=== PATIENT | male | born 1965 | race Caucasian/White ===

== ENCOUNTER 2019-06-15 10:19 | Emergency (ER) | payer BC ==
[2019-06-15] MEDS ORDERED: THIAMINE 200 MG/2 ML INJ ONE (10:47)
[2019-06-15] MEDS ORDERED: TOBRAMYCIN SULF 0.3% OPTH OINT ONE (10:59)
[2019-06-15] MEDS ORDERED: NA CHLORIDE 0.9% 1,000 ML with FOLIC ACID 1 MG, THIAMINE HCL 100 MG, MULTIVITAMINS INJ ... IV SCH ×4 (11:00)
[2019-06-15 11:06] LABS: Absolute Lymphocytes (CBC) 1.6 K/uL (0.7-4.9); Basophils % 0.8 % (0-1.3); Hematocrit 45.4 % (39.6-49.0); Lymphocytes % 16.6 % (15.3-44.8)
[2019-06-15 11:11] LABS: Protime INR 1.16
--- NOTE | 2019-06-15 11:19 | RAD REPORT ---
EXAM DESCRIPTION: CT - Head Brain Wo Cont - 06/15/2019 11:07 am CLINICAL HISTORY: Dizziness;Mental status change Headache, drowsiness COMPARISON: No comparisons TECHNIQUE: All CT scans are performed using dose optimization technique as appropriate and may inclu de automated exposure control or mA/KV adjustment according to patient size. FINDINGS: No intracranial hemorrhage, hydrocephalus or extra-axial fluid collection.No areas of brai n edema or evidence of midline shift. The paranasal sinuses and mastoids are clear. The calvarium is intact. IMPRESSION: No acute intracranial abnormality.
[2019-06-15 11:28] LABS: ALT/SGPT 25 U/L (12-78); AST/SGOT 16 U/L (15-37); Albumin 4.2 g/dL (3.4-5.0); Alkaline Phosphatase 69 U/L (45-117); BUN Blood Urea Nitrogen 9 mg/dL (7-18); Bicarbonate 23 mmol/L (21-32); Bilirubin Direct 0.2 mg/dL (0-0.2); Bilirubin Total 0.6 mg/dL (0.2-1.0); Glucose Level 93 mg/dL (74-106); Magnesium 2.4 mg/dL (1.8-2.4); NT PRO-BNP 65 pg/mL (<125); Potassium 3.3 mmol/L (3.5-5.1); Protein, Total 7.6 g/dL (6.4-8.2); Sodium Level 136 mmol/L (136-145); Troponin (Emerg Dept Use Only) < 0.02 ng/mL (0.0-0.045)
[2019-06-15] MEDS ORDERED: POTASSIUM 25 MEQ EFFERV TAB ONE (11:39)
--- NOTE | 2019-06-15 12:08 | RAD REPORT ---
EXAM DESCRIPTION: RAD - Chest Single View - 06/15/2019 11:57 am CLINICAL HISTORY: Cough COMPARISON: None. TECHNIQUE: AP portable chest image was obtained 1140 hours . FINDINGS: Lung volumes are low accentuating interstitial pattern. No consolidation or mass. No signi ficant failure or volume overload. Heart and vasculature are normal. No measurable pleural effusion a nd no pneumothorax. No acute bony abnormality seen. No acute aortic findings suspected. IMPRESSION: Shallow inspiration film showing no acute cardiopulmonary finding.
--- NOTE | 2019-06-15 12:23 | ER ---
Nurse's Notes [facility] Name: Adán Green Age: 53 yrs Sex: Male : 1965 Arrival Date: 06/15/2019 Time: 10:20 Bed 3 Private MD: Diagnosis: Conjunctivitis;Adjustment disorder with depressed mood Presentation: 06/15 10:21 Presenting complaint: EMS states: pts dad said he had a tooth pulled in April, was in [address] [facility] for the passed month, and has been acting paranoid and off since the tooth pulling per pts father, his eyes are red and has yellow drainage coming from, BGL 83, 180/110 hr 100. Transition of care: patient was not received from another setting of care. Onset of symptoms was June 15, 2019. Risk Assessment: Do you want to hurt yourself or someone else? Patient reports no desire to harm self or others. Initial Sepsis Screen: Does the patient meet any 2 criteria? HR > 90 bpm. Does the patient have a suspected source of infection? Yes: Other: dental, and eye infection. Care prior to arrival: None. 10:21 Method Of Arrival: EMS: [facility] tw2 10:21 Acuity: ZOYA 2 tw2 Triage Assessment: 10:20 General: Appears in no apparent distress. Behavior is anxious. Pain: Complains of pain tw2 in right eye and left eye. EENT: Sclera/Cornea are reddened in outer aspect of conjuctiva of right eye, iris of right eye, inner aspect of conjuctiva of right eye, outer aspect of conjuctiva of left eye, iris of left eye and inner aspect of conjunctiva of left eye with yellow tianna drainage noted. Neuro: Level of Consciousness is awake, alert, obeys commands, Oriented to person, place, situation. Cardiovascular: Heart tones S1 S2 Patient's skin is warm and dry. Respiratory: Airway is patent Respiratory effort is even, unlabored, Respiratory pattern is regular, agonal Breath sounds are clear bilaterally. GI: No signs and/or symptoms were reported involving the gastrointestinal system. GI: Abdomen is round non-distended, Bowel sounds present X 4 quads. : No signs and/or symptoms were reported regarding the genitourinary system. Derm: No signs and/or symptoms reported regarding the dermatologic system. Musculoskeletal: Range of motion: intact in all extremities. Historical: - Allergies: 10:28 No Known Allergies; tw2 - Home Meds: 10:28 Unable to obtain [Active]; tw2 - PMHx: 10:28 Hypertension; tw2 - PSHx: 10:28 Unable to obtain; tw2 - Immunization history:: Adult Immunizations unknown. - Social history:: Smoking status: Patient uses tobacco products, smokes more than three packs cigarettes per day. per EMS. - Ebola Screening: : Patient denies travel to an Ebola-affected area in the 21 days before illness onset. - Family history:: not pertinent. Screenin:31 Abuse screen: Denies threats or abuse. Nutritional screening: No deficits noted. tw2 Tuberculosis screening: No symptoms or risk factors identified. Fall Risk Secondary diagnosis (15 points) impaired mobility. Assessment: 10:30 General: Behavior is pt states "dont hurt me", we are able to explain the use of blood tw2 pressure cuff and pulse ox at this time and pt is agreeable to monitoring. 11:12 Reassessment: Patient appears in no apparent distress at this time. No changes from tw2 previously documented assessment. Patient and/or family updated on plan of care and expected duration. Pain level reassessed. 11:45 Reassessment: pts FATHER - ph#[phone]. tw2 12:08 Reassessment: Patient appears in no apparent distress at this time. No changes from tw2 previously documented assessment. Patient and/or family updated on plan of care and expected duration. Pain level reassessed. 12:09 Reassessment: pts Sister Lalita ph#[phone]. tw2 14:42 Reassessment: Nurse to nurse given to Marisa at [facility]. iw 15:42 Reassessment: Patient appears in no apparent distress at this time. No changes from tw2 previously documented assessment. Patient and/or family updated on plan of care and expected duration. Pain level reassessed. 16:07 Reassessment: Patient appears in no apparent distress at this time. No changes from tw2 previously documented assessment. Patient and/or family updated on plan of care and expected duration. Pain level reassessed. 17:05 Reassessment: Patient appears in no apparent distress at this time. No changes from tw2 previously documented assessment. Patient and/or family updated on plan of care and expected duration. Pain level reassessed. 17:49 Reassessment: Patient appears in no apparent distress at this time. No changes from tw2 previously documented assessment. Patient and/or family updated on plan of care and expected duration. Pain level reassessed. Vital Signs: 10:27 BP 140 / 112; Pulse 97; Resp 18; Temp 98.7(TE); Pulse Ox 95% on R/A; Weight 90.72 kg tw2 (R); Height 5 ft. 7 in. (170.18 cm); Pain 0/10; 10:36 BP 145 / 90; Pulse 88; Resp 17; Pulse Ox 95% on R/A; tw2 11:12 BP 130 / 84; Pulse 79; Resp 17; Pulse Ox 97% on R/A; tw2 12:08 BP 113 / 73; Pulse 74; Resp 17; Pulse Ox 100% on R/A; tw2 13:10 BP 148 / 96; Pulse 77; Resp 17; Pulse Ox 100% on R/A; tw2 14:10 BP 106 / 83; Pulse 76; Resp 17; Pulse Ox 97% on R/A; tw2 15:10 BP 103 / 69; Pulse 72; Resp 17; Pulse Ox 95% on R/A; tw2 16:06 BP 114 / 82; Pulse 72; Resp 17; Pulse Ox 99% on R/A; tw2 17:05 BP 114 / 82; Pulse 69; Resp 17; Pulse Ox 98% on R/A; tw2 17:49 BP 129 / 88; Pulse 64; Resp 17; Pulse Ox 100% on R/A; tw2 18:49 BP 137 / 87; Pulse 70; Resp 17; Pulse Ox 99% on R/A; tw2 10:27 Body Mass Index 31.32 (90.72 kg, 170.18 cm) tw2 ED Course: 10:20 Patient arrived in ED. tw2 10:20 Bed in low position. Call light in reach. Side rails up X 1. audiology technician on. Pulse tw2 ox on. NIBP on. 10:23 Triage completed. tw2 10:23 Edgardo Esquivel MD is Attending Physician. cristian 10:28 Arm band placed on. tw2 10:36 Denisse Silva RN is Primary Nurse. tw2 10:57 Initial lab(s) drawn, by me, sent to lab. Inserted saline lock: 20 gauge in right em1 forearm, using aseptic technique. Blood collected. 11:10 CT Head Brain wo Cont In Process Unspecified. EDMS 11:17 EKG done, by circuit board repair technician. reviewed by Edgardo Esquivel MD. at1 11:57 XRAY Chest (1 view) In Process Unspecified. EDMS 17:05 attempted transfer to [facility], pt denied due to not having the appropriate bd bed. 17:07 faxed chart to [facility]. bd 17:12 faxed chart to [facility]. bd 18:34 Anthony Lang MD is Referral Physician. cristian 18:36 pt denied by [facility] due to no appropriate bed. bd 18:50 No provider procedures requiring assistance completed. IV discontinued, intact, tw2 bleeding controlled, No redness/swelling at site. Pressure dressing applied. Administered Medications: 10:57 Drug: Thiamine 100 mg Route: IV; Rate: bolus; Site: right forearm; tw2 11:03 Follow up: Response: No adverse reaction; IV Status: Completed infusion tw2 11:11 Drug: Banana Bag - (NS 0.9% 1000 ml, foLIC Acid 1 mg, Thiamine 100 mg, Multivitamin 1 tw2 amp) Route: IV; Rate: 125 ml/hr; Site: right forearm; 18:49 Follow up: IV Status: Order to discontinue infusion tw2 11:11 Drug: Tobramycin Ointment (0.3 %) 1 application Route: Ophthalmic; Site: both eyes; tw2 11:42 Drug: Potassium Effervescent Tablet 25 mEq Route: PO; tw2 18:49 Follow up: Response: No adverse reaction tw2 Point of Care Testing: Blood Glucose: 10:47 Blood Glucose: 289 mg/dL; tw2 Ranges: Outcome: 12:22 ER care complete, transfer ordered by . cristian 18:36 Discharge ordered by . cristian 18:50 Discharged to home ambulatory. tw2 18:50 Condition: stable 18:50 Discharge instructions given to patient, Instructed on discharge instructions, follow up and referral plans. medication usage, Demonstrated understanding of instructions, follow-up care, medications, Prescriptions given X 1. 18:50 Patient left the ED. tw2 Signatures: Dispatcher [employer] EDMS Jenifer Downing Corey, MD MD cha Williams, Irene, RN RN iw Lamine Fabian em1 Yisel Merchant, case loader operator EKG Tat1 Denisse Silva RN RN tw2
--- NOTE | 2019-06-15 12:24 | EDPHYS ---
Physician Documentation [facility] Name: Adán Green Age: 53 yrs Sex: Male : 1965 Arrival Date: 06/15/2019 Time: 10:20 Bed 3 Private MD: ED Physician Edgardo Esquivel HPI: 06/15 10:56 This 53 yrs old Male presents to ER via EMS with complaints of Altered Mental cristian Status, Drainage From Eye. 10:56 The patient presents with confusion, trouble concentrating. Onset: The symptoms/episode cristian began/occurred 4 week(s) ago. Possible causes: unknown. Associated signs and symptoms: Pertinent positives: confusion, dizziness. Current symptoms: In the emergency department the patient's symptoms are unchanged from the initial presentation. Patient's baseline: Neuro: alert and fully oriented, Motor: no deficits. The patient has not experienced similar symptoms in the past. Historical: - Allergies: 10:28 No Known Allergies; tw2 - Home Meds: 10:28 Unable to obtain [Active]; tw2 - PMHx: 10:28 Hypertension; tw2 - PSHx: 10:28 Unable to obtain; tw2 - Immunization history:: Adult Immunizations unknown. - Social history:: Smoking status: Patient uses tobacco products, smokes more than three packs cigarettes per day. per EMS. - Ebola Screening: : Patient denies travel to an Ebola-affected area in the 21 days before illness onset. - Family history:: not pertinent. ROS: 10:56 Constitutional: Negative for fever, chills, and weight loss, ENT: Negative for injury, cristian pain, and discharge, Neck: Negative for injury, pain, and swelling, Cardiovascular: Negative for chest pain, palpitations, and edema, Respiratory: Negative for shortness of breath, cough, wheezing, and pleuritic chest pain, Abdomen/GI: Negative for abdominal pain, nausea, vomiting, diarrhea, and constipation, Back: Negative for injury and pain, : Negative for injury, bleeding, discharge, and swelling, MS/Extremity: Negative for injury and deformity, Skin: Negative for injury, rash, and discoloration, Psych: Negative for depression, anxiety, suicide ideation, homicidal ideation, and hallucinations, Allergy/Immunology: Negative for hives, rash, and allergies, Endocrine: Negative for neck swelling, polydipsia, polyuria, polyphagia, and marked weight changes, Hematologic/Lymphatic: Negative for swollen nodes, abnormal bleeding, and unusual bruising. 10:56 Eyes: Positive for itching, matting, pain, redness. 10:56 ENT: Positive for Exam: 10:56 Constitutional: This is a well developed, well nourished patient who is awake, alert, cristian and in no acute distress. Head/Face: Normocephalic, atraumatic. ENT: Nares patent. No nasal discharge, no septal abnormalities noted. Tympanic membranes are normal and external auditory canals are clear. Oropharynx with no redness, swelling, or masses, exudates, or evidence of obstruction, uvula midline. Mucous membranes moist. Neck: Trachea midline, no thyromegaly or masses palpated, and no cervical lymphadenopathy. Supple, full range of motion without nuchal rigidity, or vertebral point tenderness. No Meningismus. Chest/axilla: Normal chest wall appearance and motion. Nontender with no deformity. No lesions are appreciated. Cardiovascular: Regular rate and rhythm with a normal S1 and S2. No gallops, murmurs, or rubs. Normal PMI, no JVD. No pulse deficits. Respiratory: Lungs have equal breath sounds bilaterally, clear to auscultation and percussion. No rales, rhonchi or wheezes noted. No increased work of breathing, no retractions or nasal flaring. Abdomen/GI: Soft, non-tender, with normal bowel sounds. No distension or tympany. No guarding or rebound. No evidence of tenderness throughout. Back: No spinal tenderness. No costovertebral tenderness. Full range of motion. Male : Normal genitalia with no discharge or lesions. Skin: Warm, dry with normal turgor. Normal color with no rashes, no lesions, and no evidence of cellulitis. MS/ Extremity: Pulses equal, no cyanosis. Neurovascular intact. Full, normal range of motion. Psych: Awake, alert, with orientation to person, place and time. Behavior, mood, and affect are within normal limits. 10:56 Eyes: Periorbital structures: appear normal, no acute changes, Pupils: no acute changes, equal, round, and reactive to light and accomodation, Extraocular movements: intact throughout, Conjunctiva: injected, Corneas: are normal, no acute changes, Sclera: injected. Vital Signs: 10:27 BP 140 / 112; Pulse 97; Resp 18; Temp 98.7(TE); Pulse Ox 95% on R/A; Weight 90.72 kg tw2 (R); Height 5 ft. 7 in. (170.18 cm); Pain 0/10; 10:36 BP 145 / 90; Pulse 88; Resp 17; Pulse Ox 95% on R/A; tw2 11:12 BP 130 / 84; Pulse 79; Resp 17; Pulse Ox 97% on R/A; tw2 12:08 BP 113 / 73; Pulse 74; Resp 17; Pulse Ox 100% on R/A; tw2 13:10 BP 148 / 96; Pulse 77; Resp 17; Pulse Ox 100% on R/A; tw2 14:10 BP 106 / 83; Pulse 76; Resp 17; Pulse Ox 97% on R/A; tw2 15:10 BP 103 / 69; Pulse 72; Resp 17; Pulse Ox 95% on R/A; tw2 16:06 BP 114 / 82; Pulse 72; Resp 17; Pulse Ox 99% on R/A; tw2 17:05 BP 114 / 82; Pulse 69; Resp 17; Pulse Ox 98% on R/A; tw2 17:49 BP 129 / 88; Pulse 64; Resp 17; Pulse Ox 100% on R/A; tw2 18:49 BP 137 / 87; Pulse 70; Resp 17; Pulse Ox 99% on R/A; tw2 10:27 Body Mass Index 31.32 (90.72 kg, 170.18 cm) tw2 MDM: 10:23 Patient medically screened. [facility] 11:02 Data reviewed: vital signs, nurses notes, lab test result(s), EKG, radiologic studies, [facility] CT scan, plain films. 06/15 10:41 Order name: Basic Metabolic Panel; Complete Time: 11:31 [facility] 06/15 10:41 Order name: CBC with Diff; Complete Time: 11: [facility] 06/15 10:41 Order name: LFT's; Complete Time: 11:31 [facility] 06/15 10:41 Order name: Magnesium; Complete Time: 11:31 [facility] 06/15 10:41 Order name: NT PRO-BNP; Complete Time: 11:31 [facility] 06/15 10:41 Order name: PT-INR; Complete Time: 12:20 [facility] 06/15 10:41 Order name: Troponin (emerg Dept Use Only); Complete Time: 11:31 [facility] 06/15 10:41 Order name: Acetaminophen; Complete Time: 11:31 [facility] 06/15 10:41 Order name: ETOH Level; Complete Time: 11:31 [facility] 06/15 10:41 Order name: Ptt, Activated; Complete Time: 12:20 [facility] 06/15 10:41 Order name: Salicylate; Complete Time: 12:20 [facility] 06/15 10:41 Order name: Urine Drug Screen [facility] 06/15 10:41 Order name: Urine Culture [facility] 06/15 18:28 Order name: Urine Dipstick--Ancillary (enter results) 06/15 10:41 Order name: XRAY Chest (1 view); Complete Time: 12:20 [facility] 06/15 10:41 Order name: EKG; Complete Time: 10:44 [facility] 06/15 10:41 Order name: Cardiac monitoring; Complete Time: 10:42 [facility] 06/15 10:41 Order name: IV Saline Lock; Complete Time: 10:56 [facility] 06/15 10:41 Order name: Labs collected and sent; Complete Time: 10:56 [facility] 06/15 10:41 Order name: O2 Per Protocol; Complete Time: 10:42 [facility] 06/15 10:41 Order name: O2 Sat Monitoring; Complete Time: 10:42 [facility] 06/15 10:41 Order name: Urine Dipstick-Ancillary (obtain specimen); Complete Time: 10:56 [facility] 06/15 10:41 Order name: CT Head Brain wo Cont; Complete Time: 11:31 [facility] 06/15 12:47 Order name: Diet Heart Healthy; Complete Time: 12:49 sg 06/15 17:34 Order name: Diet Heart Healthy; Complete Time: 17:37 sg Administered Medications: 10:57 Drug: Thiamine 100 mg Route: IV; Rate: bolus; Site: right forearm; tw2 11:03 Follow up: Response: No adverse reaction; IV Status: Completed infusion tw2 11:11 Drug: Banana Bag - (NS 0.9% 1000 ml, foLIC Acid 1 mg, Thiamine 100 mg, Multivitamin 1 tw2 amp) Route: IV; Rate: 125 ml/hr; Site: right forearm; 18:49 Follow up: IV Status: Order to discontinue infusion tw2 11:11 Drug: Tobramycin Ointment (0.3 %) 1 application Route: Ophthalmic; Site: both eyes; tw2 11:42 Drug: Potassium Effervescent Tablet 25 mEq Route: PO; tw2 18:49 Follow up: Response: No adverse reaction tw2 Point of Care Testing: Blood Glucose: 10:47 Blood Glucose: 289 mg/dL; tw2 Ranges: Critical Glucose Levels:Adult <50 mg/dl or >400 mg/dl <40 mg/dl or >180 mg/dl Disposition: 06/15/19 18:36 Discharged to Home. Impression: Conjunctivitis, Adjustment disorder with depressed mood. - Condition is Stable. - Discharge Instructions: Adjustment Disorder, Adult, Bacterial Conjunctivitis, Bacterial Conjunctivitis, [id number]. - Prescriptions for Tobrex 0.3 % Ophthalmic ointment - apply 1 inch ribbon by OPHTHALMIC route 2-3 times daily; 3.5 gram. - Medication Reconciliation Form, Thank You Letter, Antibiotic Education, Prescription Opioid Use form. - Follow up: Private Physician; When: 2 - 3 days; Reason: Recheck today's complaints, Continuance of care, Re-evaluation by your physician. Follow up: Anthony Lang MD; When: 2 - 3 days; Reason: Recheck today's complaints, Re-evaluation by your physician. - Problem is new. - Symptoms have improved. Signatures: Dispatcher [employer] EDMS Edgardo Esquivel MD MD cha Wise, Tara, RN RN tw2 Corrections: (The following items were deleted from the chart) 18:34 12:22 06/15/2019 12:22 Transfer ordered to Psych Facility. 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 Reason for transfer: Higher level of care. Accepting physician is psych . Condition is Stable. Problem is new. Symptoms have improved. [facility] 18:50 18:36 06/15/2019 18:36 Discharged to Home. Impression: Conjunctivitis; Adjustment tw2 disorder with depressed mood. Condition is Stable. Forms are Medication Reconciliation Form, Thank You Letter, Antibiotic Education, Prescription Opioid Use. Follow up: Private Physician; When: 2 - 3 days; Reason: Recheck today's complaints, Continuance of care, Re-evaluation by your physician. Follow up: Anthony Lang; When: 2 - 3 days; Reason: Recheck today's complaints, Re-evaluation by your physician. Problem is new. Symptoms have improved. cristian
--- NOTE | 2019-06-15 14:26 | EKG ---
Test Date: 2019-06-15 Test Time: 11:17:16 L[facility]: ELIZABETH MEASUREMENT RESULTS: Intervals: Rate: 77 GA: 154 QRSD: 98 QT: 400 QTc: 452 [place]: P: 51 GA: 154 QRS: 24 T: 53 INTERPRETIVE STATEMENTS: Normal sinus rhythm Normal ECG No previous ECG available for comparison Electronically Signed On 06-15-19 14:25:26 CDT by Marco Felix
[2019-06-15 18:31] LABS: Urine Blood NEGATIVE (NEG); Urine Glucose NEGATIVE (NEG); Urine Protein NEGATIVE (NEG)
[2019-06-15 18:44] LABS: Barbiturates NEGATIVE (NEGATIVE); Benzodiazepines NEGATIVE (NEGATIVE); Cocaine NEGATIVE (NEGATIVE); METHAMPHETAM NEGATIVE (NEGATIVE); Methadone NEGATIVE (NEGATIVE); Opiates NEGATIVE (NEGATIVE); Phencyclidine NEGATIVE (NEGATIVE); THC Cannibis NEGATIVE (NEGATIVE)
== END 2019-06-15 18:50 | disposition home or self-care (01) ==
LOC: ER 10:19
DX: F43.21 Adjustment disorder with depressed mood (principal); H10.9 Unspecified conjunctivitis; I10 Essential (primary) hypertension; F17.210 Nicotine dependence, cigarettes, uncomplicated
CPT/HCPCS: 96365; 93005; 87088; 85025; 87086; 80048; 36415; 80320; 83735; 80329 ×2; 85610; 80076; 80307 ×8; 85730; 81003; 84484; 83880; 70450; 71045; 96375; 99285; 96366; J3411 ×2; J7030

== ENCOUNTER 2019-06-16 00:13 | Emergency (ER) | payer BC ==
--- NOTE | 2019-06-16 00:52 | ER ---
Nurse's Notes [facility] Name: Adán Green Age: 53 yrs Sex: Male : 1965 Arrival Date: 06/16/2019 Time: 00:16 Bed 7 Private MD: Diagnosis: Adjustment disorder with depressed mood;Conjunctivitis Presentation: 06/16 00:17 Presenting complaint: EMS states: pt father walked to the EMS station to have pt picked ak1 up from father's house. pt was seen in ER this evening and discharged. pt denies SI or HI. pt father stated to EMS pt has been "different" since April after tooth extraction and nursing home stay. pt A\\T\\OX4 with random laughing. pt was discharged today from ER and walked to [place] where his family picked him up and took him back home to [place]. EMS was called by father tia to transport pt back to ER for "mental health evaluation". Transition of care: patient was not received from another setting of care. Onset of symptoms is unknown. Risk Assessment: Do you want to hurt yourself or someone else? Patient reports no desire to harm self or others. Initial Sepsis Screen: Does the patient meet any 2 criteria? No. Patient's initial sepsis screen is negative. Does the patient have a suspected source of infection? No. Patient's initial sepsis screen is negative. Care prior to arrival: None. 00:17 Method Of Arrival: EMS: [facility] ak1 00:17 Acuity: ZOYA 5 ak1 Triage Assessment: 00:25 General: Appears in no apparent distress. Behavior is calm, cooperative. Pain: Denies ak1 pain. EENT: Eyes are red and swollen, pt being treated by pink eye from earlier visit today.. Neuro: Level of Consciousness is awake, alert, obeys commands, Oriented to person, place, time, situation, Appropriate for age Moves all extremities. Speech is normal. Cardiovascular: No deficits noted. Respiratory: Airway is patent Respiratory effort is even, unlabored, Respiratory pattern is regular, symmetrical. GI: No deficits noted. No signs and/or symptoms were reported involving the gastrointestinal system. : No deficits noted. No signs and/or symptoms were reported regarding the genitourinary system. Derm: No deficits noted. No signs and/or symptoms reported regarding the dermatologic system. Musculoskeletal: No deficits noted. No signs and/or symptoms reported regarding the musculoskeletal system. Historical: - Allergies: 00:25 No Known Allergies; ak1 - Home Meds: 00:25 None [Active]; ak1 - PMHx: 00:25 Hypertension; ak1 - PSHx: 00:25 Unable to obtain; ak1 - Immunization history:: Adult Immunizations unknown. - Social history:: Smoking status: unknown. - Ebola Screening: : No symptoms or risks identified at this time. Screenin:30 Abuse screen: Denies threats or abuse. Denies injuries from another. Nutritional ak1 screening: No deficits noted. Tuberculosis screening: No symptoms or risk factors identified. Fall Risk None identified. Assessment: 00:29 Reassessment: pt is A\\T\\OX4. pt denies pain. pt stated "he feels fine" pt does state he alan has no where to live right now. pt denies living with his father. 01:04 Reassessment: pt informed of plan to allow pt to sleep in ER7 until morning to then be ak1 discharged to catch the bus back to either his father's home or the [employer] for support and help with living arrangements. pt given a pillow, blanket and urinal, lights dimmed, door closed. 02:11 Reassessment: pt climbed out of bed and walked into ER2 where this nurse was medicating ak1 another pt. Adán was asked to go sit down in his room and we would talk about his"legal issues" pt continues to stay in ER2 with the other pt and his . pt walked over to bed to hold ER2 pt's hands and pray and cry. Charge nurse and other nurses came to help get Adán back to his room. Charge nurse contacted security and walked pt out to the lobby. pt insisted he go back to his dad's house to talk out "legal issues" . Vital Signs: 00:25 BP 124 / 87; Pulse 91; Resp 18; Temp 98.4; Pulse Ox 95% on R/A; Weight 90.72 kg (R); ak1 Height 5 ft. 4 in. (162.56 cm) (R); Pain 0/10; 00:25 Body Mass Index 34.33 (90.72 kg, 162.56 cm) ak ED Course: 00:16 Patient arrived in ED. ak1 00:23 Matthew Moreno NP is PHCP. pm1 00:23 Baron Mix MD is Attending Physician. pm1 00:24 Triage completed. ak1 00:25 Arm band placed on Patient placed in an exam room, on a stretcher, on pulse oximetry, ak1 Patient notified of wait time. 00:30 Reyna Mendez RN is Primary Nurse. ak1 00:30 Patient has correct armband on for positive identification. Bed in low position. Call ak1 light in reach. Side rails up X2. Pulse ox on. NIBP on. 01:06 Awaiting transportation, Awaiting: [facility] for transportation back to [place] to [facility] either his father's house or the [employer] for housing arrangements. 01:06 No provider procedures requiring assistance completed. Patient did not have IV access ak during this emergency room visit. Administered Medications: No medications were administered Outcome: 00:51 Discharge ordered by . pm1 01:06 Condition: stable ak1 02:34 Patient left the ED. ak1 Signatures: Reyna Mendez, RN RN ak1 Matthew Moreno, DULCE TELLERS SUPERVISOR pm1
--- NOTE | 2019-06-16 00:53 | EDPHYS ---
Physician Documentation [facility] Name: Adán Green Age: 53 yrs Sex: Male : 1965 Arrival Date: 06/16/2019 Time: 00:16 Bed 7 Private MD: ED Physician Baron Mix HPI: 06/16 00:51 This 53 yrs old Male presents to ER via EMS with complaints of altered mental pm1 status. 00:51 The patient presents to the emergency department with Altered mental status and pm1 behavior. Onset: The symptoms/episode began/occurred 1 month(s) ago. Past psychiatric history: Prior diagnosis: no previous psychiatric diagnosis known, Psychiatric medications include: none. Associated signs and symptoms: The patient has no apparent associated signs or symptoms. Severity of symptoms: Pain is currently a 0 / 10. The patient has been recently seen at the [facility] Emergency Department, today, for similar complaints labs were performed, X-rays were performed, was given a prescription for antibiotics. Patient was just discharged from ER 6 hours ago with same complaint. Father called EMS to hand picker the patient from his house for altered mental status reports patient not the same for the past 1 month. Patient does not have any complaints for this ER visit and is not homicidal or suicidal. Historical: - Allergies: 00:25 No Known Allergies; ak1 - Home Meds: 00:25 None [Active]; ak1 - PMHx: 00:25 Hypertension; ak1 - PSHx: 00:25 Unable to obtain; ak1 - Immunization history:: Adult Immunizations unknown. - Social history:: Smoking status: unknown. - Ebola Screening: : No symptoms or risks identified at this time. ROS: 00:51 Constitutional: Negative for fever, chills, and weight loss, ENT: Negative for injury, pm1 pain, and discharge, Neck: Negative for injury, pain, and swelling, Cardiovascular: Negative for chest pain, palpitations, and edema, Respiratory: Negative for shortness of breath, cough, wheezing, and pleuritic chest pain, Abdomen/GI: Negative for abdominal pain, nausea, vomiting, diarrhea, and constipation, Back: Negative for injury and pain, : Negative for injury, bleeding, discharge, and swelling, MS/Extremity: Negative for injury and deformity, Skin: Negative for injury, rash, and discoloration, Neuro: Negative for headache, weakness, numbness, tingling, and seizure. 00:51 Eyes: Positive for discharge, matting, redness. Exam: 00:51 Constitutional: This is a well developed, well nourished patient who is awake, alert, pm1 and in no acute distress. Head/Face: Normocephalic, atraumatic. Neck: Trachea midline, no thyromegaly or masses palpated, and no cervical lymphadenopathy. Supple, full range of motion without nuchal rigidity, or vertebral point tenderness. No Meningismus. Chest/axilla: Normal chest wall appearance and motion. Nontender with no deformity. No lesions are appreciated. 00:51 Cardiovascular: Regular rate and rhythm with a normal S1 and S2. No gallops, murmurs, or rubs. Normal PMI, no JVD. No pulse deficits. Respiratory: Lungs have equal breath sounds bilaterally, clear to auscultation and percussion. No rales, rhonchi or wheezes noted. No increased work of breathing, no retractions or nasal flaring. Abdomen/GI: Soft, non-tender, with normal bowel sounds. No distension or tympany. No guarding or rebound. No evidence of tenderness throughout. Back: No spinal tenderness. No costovertebral tenderness. Full range of motion. Skin: Warm, dry with normal turgor. Normal color with no rashes, no lesions, and no evidence of cellulitis. MS/ Extremity: Pulses equal, no cyanosis. Neurovascular intact. Full, normal range of motion. 00:51 Eyes: Periorbital structures: appear normal, Extraocular movements: intact throughout, Conjunctiva: injected. 00:51 Neuro: Orientation: is normal, to person, place, time, situation, Motor: is normal, moves all fours, Gait: is steady, at a normal pace, without difficulty. 00:51 Psych: Behavior/mood is cooperative, Oriented to person, place, time, Patient has no thoughts/intents to harm self or others. Vital Signs: 00:25 BP 124 / 87; Pulse 91; Resp 18; Temp 98.4; Pulse Ox 95% on R/A; Weight 90.72 kg (R); ak1 Height 5 ft. 4 in. (162.56 cm) (R); Pain 0/10; 00:25 Body Mass Index 34.33 (90.72 kg, 162.56 cm) ak1 MDM: 00:28 Patient medically screened. pm1 00:51 Data reviewed: vital signs. Data interpreted: Pulse oximetry: on room air is 95 %. pm1 Interpretation: normal. Counseling: I had a detailed discussion with the patient and/or guardian regarding: the historical points, exam findings, and any diagnostic results supporting the discharge/admit diagnosis, the need for outpatient follow up, to return to the emergency department if symptoms worsen or persist or if there are any questions or concerns that arise at home. Administered Medications: No medications were administered Disposition: 02:47 Co-signature as Attending Physician, Baron Mix MD I agree with the assessment and tw4 plan of care. Disposition: 06/16/19 00:51 Discharged to Home. Impression: Adjustment disorder with depressed mood, Conjunctivitis. - Condition is Stable. - Discharge Instructions: Adjustment Disorder, Adult, Bacterial Conjunctivitis. - Medication Reconciliation Form, Thank You Letter, Antibiotic Education, Prescription Opioid Use form. - Follow up: Emergency Department; When: As needed; Reason: Worsening of condition. Follow up: Private Physician; When: 2 - 3 days; Reason: Recheck today's complaints, Continuance of care, Re-evaluation by your physician. - Problem is new. - Symptoms have improved. Signatures: Reyna Mendez RN RN ak1 Matthew Moreno, SYSTEMS DEVELOPMENT MANAGER SYSTEMS DEVELOPMENT MANAGER pm1 Baron Mix MD MD tw4 Corrections: (The following items were deleted from the chart) 02:34 00:51 06/16/2019 00:51 Discharged to Home. Impression: Adjustment disorder with ak1 depressed mood; Conjunctivitis. Condition is Stable. Forms are Medication Reconciliation Form, Thank You Letter, Antibiotic Education, Prescription Opioid Use. Follow up: Emergency Department; When: As needed; Reason: Worsening of condition. Follow up: Private Physician; When: 2 - 3 days; Reason: Recheck today's complaints, Continuance of care, Re-evaluation by your physician. Problem is new. Symptoms have improved. pm1
== END 2019-06-16 02:34 | disposition home or self-care (01) ==
LOC: ER 00:13
DX: F43.21 Adjustment disorder with depressed mood (principal); H10.9 Unspecified conjunctivitis; I10 Essential (primary) hypertension
CPT/HCPCS: 99283

== ENCOUNTER 2019-07-10 20:41 | Emergency (ER) | payer BC, SELFPAY ==
[2019-07-10 23:25] LABS: Absolute Lymphocytes (CBC) 2.9 K/uL (0.7-4.9); Basophils % 0.6 % (0-1.3); Hematocrit 48.9 % (39.6-49.0); Lymphocytes % 16.8 % (15.3-44.8); MPV 7.4 fL (7.6-11.3); RBC Red Blood Cell Count 5.19 M/uL (4.33-5.43)
[2019-07-10 23:27] LABS: Protime INR 1.02
[2019-07-10 23:33] LABS: Barbiturates NEGATIVE (NEGATIVE); Benzodiazepines NEGATIVE (NEGATIVE); Cocaine NEGATIVE (NEGATIVE); METHAMPHETAM NEGATIVE (NEGATIVE); Methadone NEGATIVE (NEGATIVE); Opiates NEGATIVE (NEGATIVE); Phencyclidine NEGATIVE (NEGATIVE); THC Cannibis NEGATIVE (NEGATIVE)
[2019-07-10 23:39] LABS: Urine Bacteria <20 /HPF (NONE SEEN); Urine RBC <5 /HPF (NONE SEEN); Urine Sperm PRESENT (NONE SEEN)
[2019-07-10 23:40] LABS: Urine Culture Reflex Order NOT NEEDED
[2019-07-10 23:51] LABS: Albumin 4.3 g/dL (3.4-5.0); Bilirubin Direct 0.1 mg/dL (0-0.2); Bilirubin Total 0.4 mg/dL (0.2-1.0); Potassium 3.8 mmol/L (3.5-5.1); Protein, Total 8.1 g/dL (6.4-8.2); Thyroid Stimulating Hormone 1.64 uIU/mL (0.360-3.740)
[2019-07-11] MEDS ORDERED: NA CHLORIDE 0.9% 1,000 ML ONE (00:30)
--- NOTE | 2019-07-11 03:36 | ER ---
Nurse's Notes [facility] Name: Adán Green Age: 53 yrs Sex: Male : 1965 Arrival Date: 07/10/2019 Time: 20:42 Bed 15 Private MD: Diagnosis: Altered mental status, unspecified-early dementia Presentation: 07/10 20:55 Presenting complaint: Sister states that the patient's mental status has been declining aj1 over the past 3 months. States that he has been talking to inanimate objects and has been belligerent. He has been living with his sister but she does not feel able to handle taking care of him anymore. When patient was taken into triage he began screaming "I dont want this room, not this room!". Transition of care: patient was not received from another setting of care. Onset of symptoms was 2018. Risk Assessment: Do you want to hurt yourself or someone else? Patient reports no desire to harm self or others. Initial Sepsis Screen: Does the patient meet any 2 criteria? No. Patient's initial sepsis screen is negative. Does the patient have a suspected source of infection? No. Patient's initial sepsis screen is negative. Care prior to arrival: None. 20:55 Method Of Arrival: Ambulatory aj1 20:55 Acuity: ZOYA 3 aj1 Triage Assessment: 20:59 General: Appears in no apparent distress. comfortable, Behavior is calm, cooperative, aj1 appropriate for age. Pain: Denies pain. Neuro: Level of Consciousness is awake, alert, obeys commands, Oriented to person, place, time, situation. Cardiovascular: Patient's skin is warm and dry. Respiratory: Airway is patent Respiratory effort is even, unlabored, Respiratory pattern is regular, symmetrical. Historical: - Allergies: 20:59 No Known Allergies; aj1 - Home Meds: 20:59 None [Active]; aj1 - PMHx: 20:59 Hypertension; aj1 - Immunization history:: Adult Immunizations up to date. - Social history:: Smoking status: Patient uses tobacco products, smokes three packs cigarettes per day. recent incarceration. - Ebola Screening: : Patient denies travel to an Ebola-affected area in the 21 days before illness onset. Screenin:05 Abuse screen: Denies threats or abuse. Nutritional screening: No deficits noted. jd3 Tuberculosis screening: No symptoms or risk factors identified. Fall Risk Ambulatory Aid- None/Bed Rest/Nurse Assist (0 pts). Gait- Normal/Bed Rest/Wheelchair (0 pts) Mental Status- Oriented to own ability (0 pts). Total Pace Fall Scale indicates No Risk (0-24 pts). Assessment: 21:57 General: Appears in no apparent distress. uncomfortable, Behavior is calm, cooperative, jd3 appropriate for age, Smells of cigarette. Denies ETOH or drug use. Pain: Denies pain. Neuro: Level of Consciousness is awake, alert, obeys commands, Oriented to person, place, time, situation, Moves all extremities. Full function Gait is steady, Speech is normal, Facial symmetry appears normal, Pupils are pinpoint, family reports the pt having conversations with people that aren't there.. Cardiovascular: Heart tones S1 S2 present Capillary refill < 3 seconds Patient's skin is warm and dry. Respiratory: Airway is patent Respiratory effort is even, unlabored, Respiratory pattern is regular, symmetrical, Breath sounds are clear bilaterally. GI: No signs and/or symptoms were reported involving the gastrointestinal system. Patient currently denies constipation, diarrhea, nausea, vomiting. : EENT: Eyes redness noted in PRINCESS scleras.. Derm: Skin is intact, Skin is dry, Skin is normal, Skin temperature is warm. Musculoskeletal: Circulation, motion, and sensation intact. Range of motion: intact in all extremities. 23:42 Reassessment: Patient appears in no apparent distress at this time. No changes from jd3 previously documented assessment. Patient and/or family updated on plan of care and expected duration. Pain level reassessed. Patient is alert, oriented x 3, equal unlabored respirations, skin warm/dry/pink. awaiting results and disposition. 07/11 00:51 Reassessment: Patient appears in no apparent distress at this time. Patient and/or jd3 family updated on plan of care and expected duration. Pain level reassessed. Patient is alert, oriented x 3, equal unlabored respirations, skin warm/dry/pink. awaiting results. IV with no redness or swelling. fluids infusing freely per ordered rate. 02:02 Reassessment: Patient appears in no apparent distress at this time. Patient and/or jd3 family updated on plan of care and expected duration. Pain level reassessed. Patient is alert, oriented x 3, equal unlabored respirations, skin warm/dry/pink. awaiting disposition. 03:06 Reassessment: Patient appears in no apparent distress at this time. Patient and/or jd3 family updated on plan of care and expected duration. Pain level reassessed. Patient is alert, oriented x 3, equal unlabored respirations, skin warm/dry/pink. awaiting disposition. 03:46 Reassessment: Patient appears in no apparent distress at this time. Patient and/or jd3 family updated on plan of care and expected duration. Pain level reassessed. Patient is alert, oriented x 3, equal unlabored respirations, skin warm/dry/pink. pt and family reported understanding of discharge instructions. Patient denies pain at this time. Vital Signs: 07/10 20:59 BP 151 / 107; Pulse 115; Resp 20; Temp 99.2; Pulse Ox 95% on R/A; Weight 86.18 kg (R); aj1 Height 5 ft. 6 in. (167.64 cm) (R); Pain 0/10; 23:43 BP 146 / 106; Pulse 98; Resp 17 S; Pulse Ox 96% on R/A; jd3 07/11 00:52 BP 171 / 102; Pulse 116; Resp 18 S; Pulse Ox 95% on R/A; Pain 0/10; jd3 02:01 BP 155 / 109; Pulse 98; Resp 19 S; Pulse Ox 96% on R/A; jd3 03:45 BP 163 / 108; Pulse 105; Resp 18 S; Pulse Ox 97% on R/A; Pain 0/10; jd3 07/10 20:59 Body Mass Index 30.67 (86.18 kg, 167.64 cm) aj ED Course: 07/10 20:42 Patient arrived in ED. ds1 20:59 Triage completed. aj1 20:59 Arm band placed on. aj1 21:56 Mauricio Rod, MICAELA is Primary Nurse. jd3 22:05 Patient has correct armband on for positive identification. Bed in low position. Call j light in reach. Side rails up X 1. Adult w/ patient. 22:20 Fransisco Llamas MD is Attending Physician. gs 22:54 CT completed. Pt tolerated procedure poorly. Patient moved to CT via wheelchair. Patient moved to radiology via wheelchair. Patient moved back from CT. 23:06 CT Head Brain wo Cont In Process Unspecified. EDMS 23:11 EKG done, by ED staff, reviewed by Fransisco Llamas MD. Inserted saline lock: 20 gauge in jd3 left antecubital area, using aseptic technique. Blood collected. placed by Jyotsna HINOJOSA. 23:34 XRAY Chest (1 view) In Process Unspecified. EDMS 09 03:46 No provider procedures requiring assistance completed. IV discontinued, intact, jd3 bleeding controlled, No redness/swelling at site. Pressure dressing applied. Administered Medications: 00:33 Drug: NS 0.9% 1000 ml Route: IV; Rate: 1 bolus; Site: left antecubital; jd3 01:30 Follow up: Response: No adverse reaction; IV Status: Completed infusion; IV Intake: jd3 1000ml Intake: 01:30 IV: 1000ml; Total: 1000ml. jd3 Outcome: 03:35 Discharge ordered by MD. 03:47 Discharged to home ambulatory, with family. jd3 03:47 Condition: stable 03:47 Discharge instructions given to patient, family, Instructed on discharge instructions, follow up and referral plans. medication usage, Demonstrated understanding of instructions, follow-up care, medications, Prescriptions given X 1. 03:48 Patient left the ED. jd3 Signatures: Dispatcher [employer] EDWI Yarelis Venegsa RN RN aj1 Alexis Sarkar Cha, Mojgan ds1 Fransisco Llamas MD MD gs Davies, Jonathon, RN RN jd3 Corrections: (The following items were deleted from the chart) 07/10 20:59 20:55 Presenting complaint: Sister states that the patient's mental status has been aj1 declining over the past 3 months. States that he has been talking to inanimate objects and has been belligerent. He has been living with his sister but she does not feel able to handle taking care of him anymore. aj1
--- NOTE | 2019-07-11 03:37 | EDPHYS ---
Physician Documentation [facility] Name: Adán Green Age: 53 yrs Sex: Male : 1965 Arrival Date: 07/10/2019 Time: 20:42 Bed 15 Private MD: ED Physician Fransisco Llamas HPI: 07/11 03:01 This 53 yrs old Male presents to ER via Ambulatory with complaints of Altered gs Mental Status. 03:01 The patient presents with confusion. Onset: The symptoms/episode began/occurred 4 gs month(s) ago, and became persistent. Possible causes: unknown. Associated signs and symptoms: Pertinent positives: confusion, Pertinent negatives: ataxia, blurred vision, combativeness, headache. Current symptoms: In the emergency department the patient's symptoms are unchanged from the initial presentation. The patient has experienced similar episodes in the past, several times. The patient has not recently seen a physician. Historical: - Allergies: 07/10 20:59 No Known Allergies; aj1 - Home Meds: 20:59 None [Active]; aj1 - PMHx: 20:59 Hypertension; aj1 - Immunization history:: Adult Immunizations up to date. - Social history:: Smoking status: Patient uses tobacco products, smokes three packs cigarettes per day. recent incarceration. - Ebola Screening: : Patient denies travel to an Ebola-affected area in the 21 days before illness onset. ROS: 07/11 03:01 All other systems are negative. gs Exam: 03:01 Head/Face: Normocephalic, atraumatic. Eyes: Pupils equal round and reactive to light, gs extra-ocular motions intact. Lids and lashes normal. Conjunctiva and sclera are non-icteric and not injected. Cornea within normal limits. Periorbital areas with no swelling, redness, or edema. ENT: Nares patent. No nasal discharge, no septal abnormalities noted. Tympanic membranes are normal and external auditory canals are clear. Oropharynx with no redness, swelling, or masses, exudates, or evidence of obstruction, uvula midline. Mucous membranes moist. Neck: Trachea midline, no thyromegaly or masses palpated, and no cervical lymphadenopathy. Supple, full range of motion without nuchal rigidity, or vertebral point tenderness. No Meningismus. Chest/axilla: Normal chest wall appearance and motion. Nontender with no deformity. No lesions are appreciated. Cardiovascular: Regular rate and rhythm with a normal S1 and S2. No gallops, murmurs, or rubs. Normal PMI, no JVD. No pulse deficits. Respiratory: Lungs have equal breath sounds bilaterally, clear to auscultation and percussion. No rales, rhonchi or wheezes noted. No increased work of breathing, no retractions or nasal flaring. Abdomen/GI: Soft, non-tender, with normal bowel sounds. No distension or tympany. No guarding or rebound. No evidence of tenderness throughout. Back: No spinal tenderness. No costovertebral tenderness. Full range of motion. Skin: Warm, dry with normal turgor. Normal color with no rashes, no lesions, and no evidence of cellulitis. MS/ Extremity: Pulses equal, no cyanosis. Neurovascular intact. Full, normal range of motion. 03:01 Constitutional: The patient appears alert, awake. 03:33 Neuro: Orientation: to person, place, time, situation, Mentation: slow to respond, Cranial nerves: CN II- XII are normal as tested, Cerebellar function: no acute changes, Motor: moves all fours, Sensation: no acute changes, Gait: is steady. Vital Signs: 07/10 20:59 BP 151 / 107; Pulse 115; Resp 20; Temp 99.2; Pulse Ox 95% on R/A; Weight 86.18 kg (R); aj1 Height 5 ft. 6 in. (167.64 cm) (R); Pain 0/10; 23:43 BP 146 / 106; Pulse 98; Resp 17 S; Pulse Ox 96% on R/A; jd3 07/11 00:52 BP 171 / 102; Pulse 116; Resp 18 S; Pulse Ox 95% on R/A; Pain 0/10; jd3 02:01 BP 155 / 109; Pulse 98; Resp 19 S; Pulse Ox 96% on R/A; jd3 03:45 BP 163 / 108; Pulse 105; Resp 18 S; Pulse Ox 97% on R/A; Pain 0/10; jd3 07/10 20:59 Body Mass Index 30.67 (86.18 kg, 167.64 cm) aj MDM: 07/10 22:33 Patient medically screened. 07/11 03:33 Differential Diagnosis: CVA, neoplasm, dementia, hiv. Data reviewed: vital signs, nurses notes. Data reviewed: old medical records, lab test result(s), radiologic studies. Counseling: I had a detailed discussion with the patient and/or guardian regarding: the historical points, exam findings, and any diagnostic results supporting the discharge/admit diagnosis, the need for outpatient follow up, a neurologist. 07/10 22:36 Order name: Basic Metabolic Panel; Complete Time: 00:08 07/10 22:36 Order name: CBC with Diff; Complete Time: 00:08 07/10 22:36 Order name: LFT's; Complete Time: 00:08 07/10 22:36 Order name: PT-INR; Complete Time: 00:08 07/10 22:36 Order name: Urine Drug Screen; Complete Time: 00:08 07/10 22:36 Order name: Urine Microscopic Only; Complete Time: 00:08 07/10 22:36 Order name: CT Head Brain wo Cont 07/10 22:36 Order name: XRAY Chest (1 view) 07/10 22:36 Order name: ETOH Level; Complete Time: 00:08 07/10 22:36 Order name: TSH; Complete Time: 00:08 07/11 00:12 Order name: Procalcitonin; Complete Time: 01:51 07/11 00:12 Order name: Lactate; Complete Time: 01:24 07/11 03:06 Order name: HIV (1 EDMS 07/10 22:36 Order name: EKG; Complete Time: 22:37 07/10 22:36 Order name: Cardiac monitoring; Complete Time: 23:12 07/10 22:36 Order name: EKG - Nurse/Tech; Complete Time: 23:12 07/10 22:36 Order name: IV Saline Lock; Complete Time: 23:12 07/10 22:36 Order name: Labs collected and sent; Complete Time: 23:12 07/10 22:36 Order name: O2 Per Protocol; Complete Time: 23:12 07/10 22:36 Order name: O2 Sat Monitoring; Complete Time: 23:12 07/10 22:36 Order name: Urine Dipstick-Ancillary (obtain specimen); Complete Time: 23:14 Administered Medications: 00:33 Drug: NS 0.9% 1000 ml Route: IV; Rate: 1 bolus; Site: left antecubital; jd3 01:30 Follow up: Response: No adverse reaction; IV Status: Completed infusion; IV Intake: jd3 1000ml Disposition: 07/11/19 03:35 Discharged to Home. Impression: Altered mental status, unspecified - early dementia. - Condition is Stable. - Discharge Instructions: Confusion, Sinusitis, Adult, Mild Neurocognitive Disorder. - Prescriptions for Keflex 500 mg Oral Capsule - take 1 capsule by ORAL route every 12 hours for 10 days; 20 capsule. - Medication Reconciliation Form, Thank You Letter, Antibiotic Education, Prescription Opioid Use form. - Follow up: Private Physician; When: 2 - 3 days; Reason: Re-evaluation by your physician. Signatures: Dispatcher [employer] Yarelis Dominguez RN RN aj1 Fransisco Llamas MD MD gs Davies, Jonathon, RN RN jd3 Corrections: (The following items were deleted from the chart) 03:48 03:35 07/11/2019 03:35 Discharged to Home. Impression: Altered mental status, jd3 unspecified - early dementia. Condition is Stable. Forms are Medication Reconciliation Form, Thank You Letter, Antibiotic Education, Prescription Opioid Use. Follow up: Private Physician; When: 2 - 3 days; Reason: Re-evaluation by your physician. gs
[2019-07-11 04:11] VITALS: TEMP 99.2
[2019-07-11 04:25] VITALS: BP 163/108; O2SAT 97
--- NOTE | 2019-07-11 07:45 | EKG ---
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
--- NOTE | 2019-07-11 10:13 | RAD REPORT ---
EXAM DESCRIPTION: RAD - Chest Single View - 07/10/2019 11:34 pm CLINICAL HISTORY: Hypertension, transient alteration of awareness, cough COMPARISON: June 15 TECHNIQUE: AP portable chest image was obtained 2253 hours . FINDINGS: No focal mass or consolidation. Lung markings are similar to comparison. Heart and vascula ture are normal. No measurable pleural effusion and no pneumothorax. No acute bony abnormality seen. No acute aortic findings suspected. IMPRESSION: No acute cardiopulmonary process.
--- NOTE | 2019-07-14 12:08 | RAD REPORT ---
EXAM DESCRIPTION: CT - Head Brain Wo Cont - 07/11/2019 3:14 am CLINICAL HISTORY: 53 years Male, DECLINING STATE TECHNIQUE: 5 mm axial images were obtained along with 3 mm reformatted coronal and sagittal images. This exam was performed according to our departmental dose-optimization program, which includes autom ated exposure control, adjustment of the mA and/or kV according to patient size and/or use of iterati ve reconstruction technique. COMPARISON: None. FINDINGS: No acute abnormal extracerebral fluid collections are demonstrated. The cortical sulci, ventricles, and cisterns are within normal limits. There are no areas of altered attenuation identified to suggest acute hemorrhage, infarction, or mass lesion. The visualized portions of the paranasal sinuses and mastoid air cells are remarkable for severe mucosal thickening in the right maxillary sinus and small effusions within the mastoid air christie ls bilaterally.. IMPRESSION: 1. No acute intracranial abnormalities. 2. Severe right maxillary sinusitis. 3. Findings suggestive of mild bilateral mastoiditis. Electronically signed by: Ace Bacon MD 07/10/2019 11:20 PM CDT Due to temporary technical issues with the PACS/Fluency reporting system, reports are being signed by the in house radiologist as a courtesy to ensure prompt reporting. The interpreting radiologist is f ully responsible for the content of the report.
== END 2019-07-11 03:48 | disposition home or self-care (01) ==
LOC: ER 20:41
DX: R41.82 Altered mental status, unspecified (principal); F03.90 Unspecified dementia, unspecified severity, without behavioral disturbance, psychotic disturbance, mood disturbance, and anxiety; F17.210 Nicotine dependence, cigarettes, uncomplicated
CPT/HCPCS: 36415; 70450; 71045; 80048; 80076; 80307; 80320; 81015; 83605; 84145; 84443; 85025; 85610; 93005; 96360; 99284; G0433; J7030